=== PATIENT | male | born 1980 | race Caucasian/White ===

== ENCOUNTER 2016-09-20 14:25 | Emergency (ER) | payer SELFPAY ==
[~2016-09-20] VITALS: Ht 175.3 cm; Wt 86.2 kg
--- NOTE | 2016-09-20 14:35 | NUR ---
PT CAME IN FOR S/P BITTEN BY A BEVERLY BULL DOG BITE NOTED LEFT UPPER ARM LACERATION. PT REPORTS THAT HE DOESN'T KNOW THE BUILDING ILLUMINATING ENGINEER OF THE DOG. SEEN BY MD. SAFETY AND COMFORT MEASURES PROVIDED. WILL MONITOR.
--- NOTE | 2016-09-20 14:41 | NUR ---
DOG BITE; BEVERLY BULL ACCORDING TO THE PATIENT. HE DOES NOT KNOW THE POWER AND RECOVERY SUPERVISOR OF THE DOG.
[2016-09-20] MEDS ORDERED: AMOX/CLAVULANATE 875 MG TABLET ONE (14:56)
[2016-09-20] MEDS ORDERED: AMOX/CLAVULANATE 875 MG TABLET PO ONE (15:00)
--- NOTE | 2016-09-20 15:04 | NUR ---
PT TAKEN TO XRAY VIA WC
--- NOTE | 2016-09-20 16:15 | NUR ---
NIKKI TATE AT FOR WOUND CARE.
--- NOTE | 2016-09-20 17:00 | NUR ---
Patient discharged to home in stable condition. Written and verbal after care instructions given. Patient verbalizes understanding of instruction.
[2016-09-20 17:08] VITALS: BP 131/88
== END 2016-09-20 17:08 | disposition home or self-care (01) ==
LOC: ER 14:30
DX: S41.152A Open bite of left upper arm, initial encounter (principal); S41.132A Puncture wound without foreign body of left upper arm, initial encounter; W54.0XXA Bitten by dog, initial encounter; Y93.89 Activity, other specified; Y92.89 Other specified places as the place of occurrence of the external cause; Y99.8 Other external cause status; F17.210 Nicotine dependence, cigarettes, uncomplicated
CPT/HCPCS: 73060-TC; A4606; Z7610